=== PATIENT | female | born 1955 | race Caucasian/White ===

== ENCOUNTER → 2023-06-25 14:47 | Outpatient (REF) | payer MEDICARE, SELFPAY | LOC: RAD 14:47 | PROVIDERS: ATTENDING PHYSICIAN Internal Medicine Gastroenterology; FAMILY PHYSICIAN Family Medicine | DX: R79.89 Other specified abnormal findings of blood chemistry (principal) | CPT/HCPCS: 93975 ==

== ENCOUNTER → 2023-07-22 16:08 | Outpatient (REF) | payer MEDICARE, SELFPAY | LOC: RAD 16:08 | PROVIDERS: ATTENDING PHYSICIAN Physician Assistant; FAMILY PHYSICIAN Family Medicine | DX: R60.0 Localized edema (principal); M79.661 Pain in right lower leg; M79.662 Pain in left lower leg | CPT/HCPCS: 93970 ==

== ENCOUNTER 2023-08-15 06:11 | Day surgery (SDC) | payer MEDICARE, SELFPAY ==
[2023-08-15 06:40] VITALS: BMI 21.0
[2023-08-15 06:45] VITALS: BP 152/67
[2023-08-15 07:00] VITALS: BMI 21.0
[2023-08-15 07:21] LABS: Glucose - Point of Care 117 mg/dl (70-99)
[2023-08-15 08:52] VITALS: BP 123/69
[2023-08-15 09:00] VITALS: BP 125/61
[2023-08-15 09:15] VITALS: BP 105/59
== END 2023-08-15 09:38 | disposition home or self-care (01) ==
LOC: SDS 06:11
PROVIDERS: ATTENDING PHYSICIAN Internal Medicine Gastroenterology
DX: Z12.11 Encounter for screening for malignant neoplasm of colon (principal); K64.0 First degree hemorrhoids; Z86.010 Personal history of colon polyps
CPT/HCPCS: G0105; 82962

== ENCOUNTER → 2024-04-08 06:27 | Day surgery (SDC) | payer MEDICARE, SELFPAY ==
[2024-04-08 07:18] LABS: Glucose - Point of Care 105 mg/dl (70-99)
== END ==
LOC: GI 06:27
PROVIDERS: ATTENDING PHYSICIAN Internal Medicine Gastroenterology
PROC: 0DJD8ZZ Inspection of Lower Intestinal Tract, Via Natural or Artificial Opening Endoscopic (ICD-10-PCS; 2024-04-08)
DX: Z12.11 Encounter for screening for malignant neoplasm of colon (principal); K64.8 Other hemorrhoids
CPT/HCPCS: G0121; 82962

== ENCOUNTER → 2024-05-01 08:11 | Outpatient (REF) | payer MEDICARE, SELFPAY | LOC: RAD 08:11 | PROVIDERS: ATTENDING PHYSICIAN Physician Assistant Surgical; FAMILY PHYSICIAN Family Medicine | DX: M54.16 Radiculopathy, lumbar region (principal) | CPT/HCPCS: 73502 ==

== ENCOUNTER → 2024-05-19 14:18 | Outpatient (REF) | payer MEDICARE, SELFPAY | LOC: WDC 14:18 | PROVIDERS: ATTENDING PHYSICIAN Obstetrics & Gynecology; FAMILY PHYSICIAN Family Medicine | DX: Z12.31 Encounter for screening mammogram for malignant neoplasm of breast (principal) | CPT/HCPCS: 77063; 77067 ==

== ENCOUNTER 2024-06-23 06:16 | Day surgery (SDC) | payer MEDICARE, SELFPAY ==
[2024-06-23 11:34] LABS: Glucose - Point of Care 112 mg/dl (70-99)
== END 2024-06-23 13:45 | disposition home or self-care (01) ==
LOC: GI 06:16
PROVIDERS: ATTENDING PHYSICIAN Internal Medicine Gastroenterology
DX: Z12.11 Encounter for screening for malignant neoplasm of colon (principal); K63.89 Other specified diseases of intestine; K57.30 Diverticulosis of large intestine without perforation or abscess without bleeding; K64.8 Other hemorrhoids
CPT/HCPCS: G0121; 82962

== ENCOUNTER → 2025-01-13 07:31 | Outpatient (REF) | payer MEDICARE, SELFPAY | LOC: PAVMRI 07:31 | PROVIDERS: ATTENDING PHYSICIAN Internal Medicine Gastroenterology; FAMILY PHYSICIAN Family Medicine | DX: K86.2 Cyst of pancreas (principal) | CPT/HCPCS: 74183; A9575 ==